=== PATIENT | male | born 1935 | race Caucasian/White ===

== ENCOUNTER 2020-08-03 11:19 | Emergency (ER) | payer BC, MEDICARE ==
[2020-08-03] MEDS ORDERED: Albuterol/Ipratropium 3.0-0.5 MG/3 ML Neb Soln NEB ONE (13:44)
--- NOTE | 2020-08-03 14:38 | EDM.PDOC ---
ED HPI GENERAL MEDICAL PROBLEM - General Chief Complaint: Respiratory Problem Stated Complaint: COVID SYMPTOMS Time Seen by Provider: 08/03/20 13:30 Source of Information: Reports: Patient, Family History Limitations: Reports: No Limitations - History of Present Illness INITIAL COMMENTS - FREE TEXT/NARRATIVE: 84-year-old male has been sick for 2 weeks, was placed on an antibiotic after a phone evaluation 2 weeks ago, did not seem to be improving so another phone call resulted in a Covid test last . Results are not back yet, he is still short of breath just walking across the room so he called the clinic and they told him to come to the emergency room. Onset: Gradual Duration: Week(s): (Symptoms have been ongoing for 3 weeks) Location: Reports: Chest (Some left chest soreness with coughing and breathing intermittent) Associated Symptoms: Reports: Chest Pain, Cough, Fever/Chills, Malaise, Weakness. Denies: Nausea/Vomiting Generalized Pain Score (Numeric/FACES): 5 - Related Data Allergies Allergy/AdvReac Type Severity Reaction Status Date / Time No Known Allergies Allergy Verified 08/03/20 13:19 Home Meds: Home Meds Hydrocodone/Acetaminophen [Hydrocodon-Acetaminoph 7.5-500] 7.5 mg PO Q4HR PRN 07/30/13 [History] Warfarin [Jantoven] 7.5 mg PO DAILY 07/30/13 [History] Clobetasol [Temovate 0.05% Oint] 1 film TOP BID PRN 04/21/15 [History] Tamsulosin HCl [Flomax] 1 cap PO DAILY 04/21/15 [History] Past Medical History Other HEENT History: scleorol buccal in left eye Cardiovascular History: Reports: None, PVD Respiratory History: Reports: PE Other Respiratory History: 2005 Other Genitourinary History: hydrocele Musculoskeletal History: Reports: Arthritis 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, Peripheral Psychiatric History: Reports: None Hematologic History: Reports: None Immunologic History: Reports: None Oncologic (Cancer) History: Reports: None Dermatologic History: Reports: None - Infectious Disease History Infectious Disease History: Reports: Chicken Pox - Past Surgical History GI Surgical History: Reports: Appendectomy, Hernia Repair/Other Social & Family History - Tobacco Use Tobacco Use Status *Q: Never Tobacco User - Recreational Drug Use Recreational Drug Use: No ED ROS GENERAL - Review of Systems Review Of Systems: See Below Constitutional: Reports: Fever, Chills, Malaise, Decreased Appetite HEENT: Denies: Throat Pain Respiratory: Reports: Shortness of Breath, Pleuritic Chest Pain, Cough, Sputum. Denies: Hemoptysis Cardiovascular: Reports: Chest Pain (Left-sided with coughing). Denies: Palpitations GI/Abdominal: Reports: No Symptoms : Reports: No Symptoms Skin: Reports: No Symptoms Neurological: Reports: Dizziness, Weakness. Denies: Headache, Difficulty Walking Psychiatric: Reports: No Symptoms ED EXAM, GENERAL - Physical Exam Exam: See Below Exam Limited By: No Limitations General Appearance: Alert, No Apparent Distress Head: Atraumatic Neck: Supple, Non-Tender Respiratory/Chest: Wheezing (Diffuse expiratory wheezes are heard, underlying good air movement) Cardiovascular: Regular Rate, Rhythm. No: Tachycardia GI/Abdominal: Soft, Non-Tender Extremities: Normal Inspection Neurological: Alert, Oriented, No Motor/Sensory Deficits Psychiatric: Normal Affect, Normal Mood Skin Exam: Warm, Dry Course - Vital Signs Last Recorded V/S: Last Vital Signs Temp 97.5 F 08/03/20 13:15 Pulse 99 08/03/20 14:45 Resp 16 08/03/20 14:45 BP 156/90 H 08/03/20 14:45 Pulse Ox 94 L 08/03/20 14:45 - Orders/Labs/Meds Meds: Medications Discontinued Medications Generic Name Dose Route Start Last Admin Trade Name Freq PRN Reason Stop Dose Admin Albuterol/Ipratropium 3 ml 08/03/20 13:44 08/03/20 14:09 Duoneb 3.0-0.5 Mg/3 Ml NEB 08/03/20 13:45 3 ml ONETIME ONE Administration - Re-Assessments/Exams Free Text/Narrative Re-Assessment/Exam: 08/03/20 14:49 Chest x-ray shows a small infiltrate in the right lower lobe, he is O2 saturations were 96 to 97% and he felt much more comfortable after the DuoNeb. It was a dexamethasone daily for 5 days, Ceftin 500 mg twice daily for 7 days, and given an albuterol inhaler for as needed use with wheezing and cough. His Covid test should be available in the next 24 to 48 hours. If worsening he can return, otherwise take medication as prescribed and increase activity as tolerated. Departure - Departure Time of Disposition: 15:10 Disposition: Home, Self-Care 01 Clinical Impression: Right lower lobe pneumonia Qualifiers: Pneumonia type: due to unspecified organism Qualified Code(s): J18.9 - Pneumonia, unspecified organism Reactive airway disease Qualifiers: Asthma severity: mild Asthma persistence: persistent Asthma complication type: uncomplicated Qualified Code(s): J45.30 - Mild persistent asthma, uncomplicated - Discharge Information Instructions: Community-Acquired Pneumonia, Adult, [id number] Referrals: PCP,None [Primary Care Provider] - Forms: ED Department Discharge Care Plan Goals: Take antibiotic twice daily as prescribed, dexamethasone daily as prescribed, and use inhaler 2 puffs every 3-4 hours if needed for wheezing and shortness of breath. Recheck in 2 to 3 days if not improving satisfactorily or sooner if worsening. Sepsis Event Note (ED) - Evaluation Sepsis Screening Result: No Definite Risk - Focused Exam Vital Signs: Vital Signs Temp Pulse Resp BP Pulse Ox 08/03/20 14:45 99 16 156/90 H 94 L 08/03/20 14:10 99 18 144/82 H 96 08/03/20 13:15 97.5 F 96 20 135/89 95
--- NOTE | 2020-08-03 14:46 | CR ---
CHEST: 2 view CLINICAL HISTORY:Dyspnea COMPARISON:None FINDINGS: Heart size and pulmonary vascularity are normal. There are atherosclerotic changes in the aorta.. There is patchy opacity in the right lower lobe and right middle lobe. There is minimal streaky density at the left lung base. IMPRESSION: Infiltrate at the right lung base is felt to be both in the right middle lobe and lower lobe and is suspect for pneumonia. If clinical symptomatology persists or worsens a repeat exam is recommended.
[2020-08-03 15:06] VITALS: PULSE 99
[2020-08-03 15:08] VITALS: BP 156/90
== END 2020-08-03 15:09 | disposition home or self-care (01) ==
LOC: JP.ED 11:19
DX: J18.9 Pneumonia, unspecified organism (principal); J45.30 Mild persistent asthma, uncomplicated
CPT/HCPCS: 71046; 71046-26; 94640; 99285-25; J7620-GY

== ENCOUNTER 2020-09-01 22:47 | Emergency (ER) | payer MEDICARE ==
[2020-09-01] MEDS ORDERED: Albuterol/Ipratropium 4 GM Inhalation Spray INH STA (23:24)
--- NOTE | 2020-09-01 23:28 | EDM.PDOC ---
ED HPI GENERAL MEDICAL PROBLEM - General Chief Complaint: Respiratory Problem Stated Complaint: BREATHING TROUBLE Time Seen by Provider: 09/01/20 23:19 Source of Information: Reports: Patient, Family, RN Notes Reviewed History Limitations: Reports: No Limitations - History of Present Illness INITIAL COMMENTS - FREE TEXT/NARRATIVE: 84-year-old gentleman presents emergency department a complaint of shortness of breath, he states shortness of breath is developed over the last 3 days but has gotten progressively worse tonight. He recently had COVID-19 he is approximately 1 month out from recovery of that disease also has a history of pulmonary embolism which he is on Coumadin however last week his Coumadin was subtherapeutic. - Related Data Allergies Allergy/AdvReac Type Severity Reaction Status Date / Time No Known Allergies Allergy Verified 09/01/20 23:12 Home Meds: Home Meds Hydrocodone/Acetaminophen [Hydrocodon-Acetaminoph 7.5-500] 7.5 mg PO Q4HR PRN 07/30/13 [History] Warfarin [Jantoven] 5 mg PO DAILY 07/30/13 [History] Clobetasol [Temovate 0.05% Oint] 1 film TOP BID PRN 04/21/15 [History] Tamsulosin HCl [Flomax] 1 cap PO DAILY 04/21/15 [History] Docusate Sodium [Colace] 100 mg PO ASDIRECTED 09/01/20 [History] Multivitamin 1 each PO DAILY 09/01/20 [History] Vitamin E 1,000 unit PO DAILY 09/01/20 [History] Past Medical History Other HEENT History: scleorol buccal in left eye Cardiovascular History: Reports: PVD Respiratory History: Reports: PE Other Respiratory History: 2005 Other Genitourinary History: hydrocele Musculoskeletal History: Reports: Arthritis 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, Peripheral Hematologic History: Reports: None Immunologic History: Reports: None Oncologic (Cancer) History: Reports: None Dermatologic History: Reports: None - Infectious Disease History Infectious Disease History: Reports: Chicken Pox - Past Surgical History GI Surgical History: Reports: Appendectomy, Hernia Repair/Other Social & Family History - Tobacco Use Tobacco Use Status *Q: Never Tobacco User - Caffeine Use Caffeine Use: Reports: Coffee ED ROS GENERAL - Review of Systems Review Of Systems: See Below Constitutional: Reports: No Symptoms HEENT: Reports: No Symptoms Respiratory: Reports: Shortness of Breath, Wheezing Cardiovascular: Reports: Dyspnea on Exertion GI/Abdominal: Reports: No Symptoms : Reports: No Symptoms ED EXAM, GENERAL - Physical Exam Exam: See Below Exam Limited By: No Limitations General Appearance: Alert, WD/WN, No Apparent Distress Respiratory/Chest: No Respiratory Distress, No Accessory Muscle Use, Chest Non- Tender, Wheezing Cardiovascular: Regular Rate, Rhythm, No Murmur GI/Abdominal: Soft, Non-Tender Course - Vital Signs Last Recorded V/S: Last Vital Signs Temp 98.8 F 09/01/20 23:08 Pulse 90 09/02/20 01:23 Resp 24 H 09/02/20 00:11 BP 139/92 H 09/02/20 01:23 Pulse Ox 91 L 09/02/20 01:23 - Orders/Labs/Meds Orders: Active Orders 24 hr Category Date Time Status EKG Documentation Completion [RC] ASDIRECTED Care 09/01/20 23:25 Active Peripheral IV Care [RC] . DIRECTED Care 09/02/20 00:35 Active RT Post Treatment Assessment [RC] Click to Edit Care 09/01/20 23:26 Active Chest 2V [CR] Urgent Exams 09/01/20 23:24 Taken Sodium Chloride 0.9% [Normal Saline] 1,000 ml Med 09/02/20 00:45 Active IV ASDIRECTED Sodium Chloride 0.9% [Saline Flush] Med 09/02/20 00:35 Active 10 ml FLUSH ASDIRECTED PRN Peripheral IV Insertion Adult [OM.PC] Urgent Oth 09/02/20 00:35 Ordered EKG 12 Lead [EK] Urgent Ther 09/01/20 23:24 Ordered Medication Orders Sodium Chloride (Normal Saline) 1,000 mls @ 500 mls/hr IV ASDIRECTED AMANDA Last Admin: 09/02/20 01:21 Dose: 500 mls/hr Documented by: DEEP Sodium Chloride (Saline Flush) 10 ml FLUSH ASDIRECTED PRN PRN Reason: Keep Vein Open Last Admin: 09/02/20 00:48 Dose: 10 ml Documented by: DEEP Labs: Laboratory Tests 09/01/20 09/01/20 09/01/20 Range/Units 23:35 23:35 23:35 WBC 7.7 (4.5-11.0) K/uL RBC 4.97 (4.30-5.90) M/uL Hgb 15.5 H (12.0-15.0) g/dL Hct 47.5 (40.0-54.0) % MCV 96 (80-98) fL MCH 31 (27-31) pg MCHC 33 (32-36) % Plt Count 311 (150-400) K/uL Neut % (Auto) 53 (36-66) % Lymph % (Auto) 28 (24-44) % [place] % (Auto) 11 H (2-6) % Eos % (Auto) 8 H (2-4) % Baso % (Auto) 1 (0-1) % PT 18.7 H (9.5-12.0) sec INR 1.73 H (0.80-1.20) D-Dimer, Quantitative 314.64 (0.0-500.0) ng/mL Sodium (140-148) mmol/L Potassium (3.6-5.2) mmol/L Chloride (100-108) mmol/L Carbon Dioxide (21-32) mmol/L Anion Gap (5.0-14.0) mmol/L BUN (7-18) mg/dL Creatinine (0.8-1.3) mg/dL Est Cr Clr Drug Dosing mL/min Estimated GFR (MDRD) (>60) Glucose (74-106) mg/dL Calcium (8.5-10.1) mg/dL Total Bilirubin (0.2-1.0) mg/dL AST (15-37) U/L ALT (12-78) U/L Alkaline Phosphatase (46-116) U/L Troponin I (0.000-0.056) ng/mL NT-Pro-B Natriuret Pep (5-450) pg/mL Total Protein (6.4-8.2) g/dL Albumin (3.4-5.0) g/dL Globulin (2.3-3.5) g/dL Albumin/Globulin Ratio (1.2-2.2) 09/01/20 09/02/20 Range/Units 23:35 00:36 WBC (4.5-11.0) K/uL RBC (4.30-5.90) M/uL Hgb (12.0-15.0) g/dL Hct (40.0-54.0) % MCV (80-98) fL MCH (27-31) pg MCHC (32-36) % Plt Count (150-400) K/uL Neut % (Auto) (36-66) % Lymph % (Auto) (24-44) % [place] % (Auto) (2-6) % Eos % (Auto) (2-4) % Baso % (Auto) (0-1) % PT (9.5-12.0) sec INR (0.80-1.20) D-Dimer, Quantitative (0.0-500.0) ng/mL Sodium 143 (140-148) mmol/L Potassium 3.9 (3.6-5.2) mmol/L Chloride 106 (100-108) mmol/L Carbon Dioxide 26 (21-32) mmol/L Anion Gap 11.4 (5.0-14.0) mmol/L BUN 14 (7-18) mg/dL Creatinine 1.1 (0.8-1.3) mg/dL Est Cr Clr Drug Dosing 50.88 mL/min Estimated GFR (MDRD) > 60 (>60) Glucose 122 H (74-106) mg/dL Calcium 8.9 (8.5-10.1) mg/dL Total Bilirubin 0.8 (0.2-1.0) mg/dL AST 18 D (15-37) U/L ALT 32 (12-78) U/L Alkaline Phosphatase 84 (46-116) U/L Troponin I < 0.017 (0.000-0.056) ng/mL NT-Pro-B Natriuret Pep 64 (5-450) pg/mL Total Protein 6.5 (6.4-8.2) g/dL Albumin 3.3 L (3.4-5.0) g/dL Globulin 3.2 (2.3-3.5) g/dL Albumin/Globulin Ratio 1.0 L (1.2-2.2) Meds: Medications Generic Name Dose Route Start Last Admin Trade Name Freq PRN Reason Stop Dose Admin Sodium Chloride 1,000 mls @ 500 mls/hr 09/02/20 00:45 09/02/20 01:21 Normal Saline IV 500 mls/hr ASDIRECTED AMANDA Administration Sodium Chloride 10 ml 09/02/20 00:35 09/02/20 00:48 Saline Flush FLUSH 10 ml ASDIRECTED PRN Administration Keep Vein Open Discontinued Medications Generic Name Dose Route Start Last Admin Trade Name Estrellita PRN Reason Stop Dose Admin Albuterol/Ipratropium 1 gm 09/01/20 23:24 09/01/20 23:33 Combivent Respimat INH 09/01/20 23:25 2 puff NOW STA Administration Diphenhydramine HCl 25 mg 09/02/20 00:35 09/02/20 00:44 Benadryl IVPUSH 09/02/20 00:36 25 mg ONETIME ONE Administration Sodium Chloride 100 mls @ 4 mls/sec 09/02/20 00:56 09/02/20 01:04 Normal Saline IV 09/02/20 00:57 4 mls/sec ASDIRECTED STA Administration Iopamidol 100 ml 09/02/20 00:56 09/02/20 01:04 Isovue-370 (76%) IV 09/02/20 00:57 100 ml . DIRECTED STA Administration Ondansetron HCl 4 mg 09/02/20 00:35 09/02/20 00:45 Zofran IVPUSH 09/02/20 00:36 4 mg ONETIME ONE Administration Departure - Departure Time of Disposition: 02:07 Disposition: Home, Self-Care 01 Condition: Fair Clinical Impression: Dyspnea due to COVID-19 - Discharge Information Instructions: Shortness of Breath, Adult, COVID-19 Referrals: Kev Clark, OTHER SPATIAL SCIENTIST [Primary Care Provider] - Forms: ED Department Discharge Additional Instructions: Continue to use your Combivent inhaler you can use 1 puff every 4 hours as needed, please followup with your primary care provider in 5-7 days if not better, please call return to the emergency department with worsening of symptoms. Also on your next follow-up visit with your primary care remember to discuss and bring your information on your thoracic aorta for further image studies and evaluation Sepsis Event Note (ED) - Evaluation Sepsis Screening Result: Possible Sepsis Risk - Focused Exam Vital Signs: Vital Signs Temp Pulse Resp BP Pulse Ox 09/02/20 01:23 90 139/92 H 91 L 09/02/20 00:11 96 24 H 143/88 H 88 L 09/01/20 23:08 98.8 F 106 H 25 H 186/108 H 92 L - My Orders Last 24 Hours: My Active Orders 09/01/20 23:24 Chest 2V [CR] Urgent EKG 12 Lead [EK] Urgent 09/01/20 23:25 EKG Documentation Completion [RC] ASDIRECTED 09/01/20 23:26 RT Post Treatment Assessment [RC] Click to Edit 09/02/20 00:35 Peripheral IV Care [RC] . DIRECTED Sodium Chloride 0.9% [Saline Flush] 10 ml FLUSH ASDIRECTED PRN Peripheral IV Insertion Adult [OM.PC] Urgent 09/02/20 00:45 Sodium Chloride 0.9% [Normal Saline] 1,000 ml IV ASDIRECTED - Assessment/Plan Last 24 Hours: My Active Orders 09/01/20 23:24 Chest 2V [CR] Urgent EKG 12 Lead [EK] Urgent 09/01/20 23:25 EKG Documentation Completion [RC] ASDIRECTED 09/01/20 23:26 RT Post Treatment Assessment [RC] Click to Edit 09/02/20 00:35 Peripheral IV Care [RC] . 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
[2020-09-02] MEDS ORDERED: diphenhydrAMINE 50 MG/ML SDV IVPUSH ONE (00:35)
[2020-09-02] MEDS ORDERED: Sodium Chloride 0.9% 10 ML Syringe FLUSH PRN (00:35)
[2020-09-02] MEDS ORDERED: Ondansetron 4 MG/2 ML SDV IVPUSH ONE (00:35)
[2020-09-02] MEDS ORDERED: Sodium Chloride 0.9% 1,000 ML IV SCH (00:45)
[2020-09-02] MEDS ORDERED: Sodium Chloride 0.9% 100 ML IV STA (00:56)
[2020-09-02] MEDS ORDERED: Iopamidol 755 Mg/ML 100 ML Bottle IV STA (00:56)
[2020-09-02 01:23] VITALS: BP 139/92; PULSE 90
--- NOTE | 2020-09-02 01:45 | CRLCT ---
INDICATION: Shortness of breath post COVID-19 TECHNIQUE: CT chest with i.v. contrast using pulmonary angiographic technique. Coronal and sagittal reformats were obtained. CONTRAST: 100 mL Isovue 370 COMPARISON: None FINDINGS: Cardiovascular: The pulmonary arteries are unremarkable in enhancement with no evidence of acute pulmonary embolism. The heart has an unremarkable appearance and size. 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 Mediastinum: No mass or adenopathy seen. Lung: Patchy ground-glass opacities are present within the right middle lobe and right lower lobe, likely due to COVID-19 infection. Pleura and pericardium: No sign of pleural effusion seen. No significant pericardial effusion is present. Chest wall and axilla: No mass or adenopathy seen. Bone: Unremarkable for age. Upper abdomen: Unremarkable. IMPRESSIONS: 1. No CT evidence of acute pulmonary emboli seen. 2. 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 Dictated by Vladislav Conrad MD @ 09/02/2020 1:43:41 AM Please note that all CT scans at this facility use dose modulation, iterative reconstruction, and/or weight-based dosing when appropriate to reduce radiation dose to as low as reasonably achievable. Dictated by: Vladislav Conrad MD @ 09/02/2020 01:43:43 (Electronically Signed)
--- NOTE | 2020-09-02 09:10 | CR ---
CHEST: 2 view CLINICAL HISTORY:SOB COMPARISON:2 view chest 08/03/2020 FINDINGS: There is some patchy infiltrate in the right lower lobe. This has diminished in density since the prior study. There is also some mild patchy density in the lingula. Heart size and pulmonary vascularity are normal. There are atherosclerotic changes in the aorta.. IMPRESSION: Decrease in density of the right lower lobe infiltrate seen in July Patchy lingular density is suspect for infiltrate in the left lung base
== END 2020-09-02 02:27 | disposition home or self-care (01) ==
LOC: JP.ED 22:47
DX: U07.1 COVID-19 (principal); Z90.49 Acquired absence of other specified parts of digestive tract; Z86.711 Personal history of pulmonary embolism; Z79.01 Long term (current) use of anticoagulants; Z79.899 Other long term (current) drug therapy
CPT/HCPCS: 36415; 71046; 71275; 80053; 83880; 84484; 85025; 85379; 85610; 93005; 93010; 94640; 96374; 96375; 99284; 99285; A9270; J1200; J2405; J7030; Q9967

== ENCOUNTER 2020-09-11 04:27 | Emergency (ER) | payer MEDICARE ==
[2020-09-11] MEDS ORDERED: Albuterol/Ipratropium 3.0-0.5 MG/3 ML Neb Soln NEB ONE (04:56)
--- NOTE | 2020-09-11 05:02 | EDM.PDOC ---
ED HPI GENERAL MEDICAL PROBLEM - General Chief Complaint: Cardiovascular Problem Stated Complaint: [facility] Time Seen by Provider: 09/11/20 04:45 Source of Information: Reports: Patient, EMS, Family, Old Records, RN History Limitations: Reports: No Limitations - History of Present Illness INITIAL COMMENTS - FREE TEXT/NARRATIVE: 84 yo male presents with L lower/lateral chest and upper left lateral abdominal pain. Sx's for a couple days. Seemed worse tonight so he called EMS. Nothing seemed to make his pain better or worse, but on arrival via EMS he his sx's are mostly gone. He took acetaminophen at home without much change. He is here with his via EMS. Saw Kev Clark in the clinic this past Monday and was given a nebulizer with Duoneb meds that he has been using every 4 hrs, last dose tonight at midnight. No follow up appt was scheduled after that. Onset: Gradual Onset Date: 09/09/20 Duration: Day(s):, Improving (was getting worse until he called EMS) Location: Reports: Chest (Left), Abdomen (left) Quality: Reports: Dull Severity: Mild Improves with: Reports: Other (unsure) Worsens with: Reports: Other (unknown) Context: Reports: Other (See HPI) Associated Symptoms: Reports: No Other Symptoms Treatments TRIAGE NURSE: Reports: See EMS Report, Other (see below) (none) - Related Data Allergies Allergy/AdvReac Type Severity Reaction Status Date / Time No Known Allergies Allergy Verified 09/11/20 04:36 Home Meds: Home Meds Hydrocodone/Acetaminophen [Hydrocodon-Acetaminoph 7.5-500] 7.5 mg PO Q4HR PRN 07/30/13 [History] Warfarin [Jantoven] 5 mg PO DAILY 07/30/13 [History] Clobetasol [Temovate 0.05% Oint] 1 film TOP BID PRN 04/21/15 [History] Tamsulosin HCl [Flomax] 1 cap PO DAILY 04/21/15 [History] Docusate Sodium [Colace] 100 mg PO ASDIRECTED 09/01/20 [History] Multivitamin 1 each PO DAILY 09/01/20 [History] Vitamin E 1,000 unit PO DAILY 09/01/20 [History] Past Medical History Other HEENT History: scleorol buccal in left eye Cardiovascular History: Reports: PVD Respiratory History: Reports: PE Other Respiratory History: 2006 Other Genitourinary History: hydrocele Musculoskeletal History: Reports: Arthritis 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, Peripheral Psychiatric History: Reports: None Hematologic History: Reports: None Immunologic History: Reports: None Oncologic (Cancer) History: Reports: None Dermatologic History: Reports: None - Infectious Disease History Infectious Disease History: Reports: Chicken Pox, Novel Coronavirus - Past Surgical History GI Surgical History: Reports: Appendectomy, Hernia Repair/Other Social & Family History - Tobacco Use Tobacco Use Status *Q: Never Tobacco User - Caffeine Use Caffeine Use: Reports: Coffee - Recreational Drug Use Recreational Drug Use: No ED ROS GENERAL - Review of Systems Review Of Systems: See Below Constitutional: Reports: No Symptoms HEENT: Reports: No Symptoms Respiratory: Reports: Shortness of Breath, Wheezing Cardiovascular: Reports: Chest Pain (L lateral/lower chest) GI/Abdominal: Reports: Abdominal Pain (L lateral/upper ) : Reports: No Symptoms Musculoskeletal: Reports: No Symptoms Skin: Reports: No Symptoms ED EXAM, GENERAL - Physical Exam Exam: See Below Exam Limited By: No Limitations General Appearance: Alert, WD/WN, No Apparent Distress Eye Exam: Bilateral Eye: Normal Inspection Ears: Normal External Exam, Normal Canal, Hearing Grossly Normal Ear Exam: Bilateral Ear: Auricle Normal, Canal Normal Nose: Normal Inspection, No Blood Throat/Mouth: Normal Inspection, Normal Lips, Normal Oropharynx, Normal Voice, No Airway Compromise Head: Atraumatic, Normocephalic Neck: Normal Inspection Respiratory/Chest: No Respiratory Distress, No Accessory Muscle Use, Chest Non- Tender, Wheezing Cardiovascular: Regular Rate, Rhythm, No Edema GI/Abdominal: Normal Bowel Sounds, Soft, Non-Tender, No Distention Back Exam: Normal Inspection Extremities: Normal Inspection, Normal Range of Motion, Non-Tender, No Pedal Edema Neurological: Alert, Oriented, CN II-XII Intact, Normal Cognition, No Motor/Sensory Deficits Psychiatric: Normal Affect, Normal Mood Skin Exam: Warm, Dry, Intact, Normal Color, No Rash Course - Vital Signs Last Recorded V/S: Last Vital Signs Temp Pulse 100 09/11/20 05:33 Resp 19 09/11/20 05:33 BP 152/86 H 09/11/20 05:33 Pulse Ox 91 L 09/11/20 05:33 - Orders/Labs/Meds Orders: Active Orders 24 hr Category Date Time Status RT Aerosol Therapy [RC] ASDIRECTED Care 09/11/20 04:56 Active Labs: Laboratory Tests 09/11/20 09/11/20 Range/Units 05:03 05:03 PT 24.8 H (9.5-12.0) sec INR 2.31 H (0.80-1.20) Troponin I < 0.017 (0.000-0.056) ng/mL Meds: Medications Discontinued Medications Generic Name Dose Route Start Last Admin Trade Name Estrellita PRN Reason Stop Dose Admin Albuterol/Ipratropium 3 ml 09/11/20 04:56 09/11/20 05:01 Duoneb 3.0-0.5 Mg/3 Ml NEB 09/11/20 04:57 3 ml ONETIME ONE Administration Prednisone 30 mg 09/11/20 05:05 09/11/20 05:09 Prednisone PO 09/11/20 05:06 30 mg ONETIME ONE Administration Departure - Departure Time of Disposition: 06:00 Disposition: Home, Self-Care 01 Condition: Fair Clinical Impression: Bronchospasm, Resolved abdominal pain Instructions: Bronchospasm, Adult, [id number] Referrals: Kev Clark CUE WORKER [Primary Care Provider] - Forms: ED Department Discharge Additional Instructions: Take prednisone with meals as directed. Continue your other medications as before. Recheck with your provider in the clinic next Monday, call for an appt. Use acetaminophen 1000 mg every 6 hrs as needed for pain relief. Sepsis Event Note (ED) - Evaluation Sepsis Screening Result: No Definite Risk - Focused Exam Vital Signs: Vital Signs Pulse Resp BP Pulse Ox 09/11/20 05:33 100 19 152/86 H 91 L 09/11/20 05:12 98 09/11/20 04:33 99 18 149/96 H 92 L - My Orders Last 24 Hours: My Active Orders 09/11/20 04:56 RT Aerosol Therapy [RC] ASDIRECTED - Assessment/Plan Last 24 Hours: My Active Orders 09/11/20 04:56 RT Aerosol Therapy [RC] ASDIRECTED
[2020-09-11] MEDS ORDERED: predniSONE 10 MG Tab PO ONE (05:05)
[2020-09-11 05:34] VITALS: BP 152/86; PULSE 100
== END 2020-09-11 05:58 | disposition home or self-care (01) ==
LOC: JP.ED 04:27
DX: J98.01 Acute bronchospasm (principal); G62.9 Polyneuropathy, unspecified; Z79.01 Long term (current) use of anticoagulants; Z79.899 Other long term (current) drug therapy; Z86.711 Personal history of pulmonary embolism
CPT/HCPCS: 36415; 84484; 85610; 94640; 99285; J7512; J7620-GY

== ENCOUNTER 2020-09-12 09:55 | Emergency (ER) | payer MEDICARE ==
[2020-09-12] MEDS ORDERED: Albuterol/Ipratropium 3.0-0.5 MG/3 ML Neb Soln NEB ONE (10:49)
--- NOTE | 2020-09-12 10:53 | EDM.PDOC ---
ED HPI GENERAL MEDICAL PROBLEM - General Chief Complaint: Respiratory Problem Stated Complaint: SOB Time Seen by Provider: 09/12/20 10:37 Source of Information: Reports: Patient, Family, Old Records, RN Notes Reviewed History Limitations: Reports: No Limitations - History of Present Illness INITIAL COMMENTS - FREE TEXT/NARRATIVE: 84-year-old gentleman presents emergency department a complaint of shortness of breath, wheezing diagnosed with Covid 19 on July 30 he has had follow-up in the clinic and has been in the emergency department two times since then same complaint of shortness of breath, underwent CT scan angio 10 days ago which was negative for any pulmonary embolism. He has been using albuterol and ipratropium where he gets some relief for shortness of breath was started on steroids yesterday at his ER visit. He has not had any fevers no nausea vomiting no chest pain no GI symptomatologies he does produce sputum and has a significant cough. History of pulmonary embolism and is anticoagulated with Coumadin - Related Data Allergies Allergy/AdvReac Type Severity Reaction Status Date / Time No Known Allergies Allergy Verified 09/12/20 10:04 Home Meds: Home Meds Hydrocodone/Acetaminophen [Hydrocodon-Acetaminoph 7.5-500] 7.5 mg PO Q4HR PRN 07/30/13 [History] Warfarin [Jantoven] 5 mg PO DAILY 07/30/13 [History] Clobetasol [Temovate 0.05% Oint] 1 film TOP BID PRN 04/21/15 [History] Tamsulosin HCl [Flomax] 1 cap PO DAILY 04/21/15 [History] Docusate Sodium [Colace] 100 mg PO ASDIRECTED 09/01/20 [History] Multivitamin 1 each PO DAILY 09/01/20 [History] Vitamin E 1,000 unit PO DAILY 09/01/20 [History] predniSONE [Prednisone] 10 mg PO TID 09/12/20 [History] Past Medical History HEENT History: Reports: Other (See Below) Other HEENT History: scleorol buccal in left eye Cardiovascular History: Reports: PVD Respiratory History: Reports: PE Other Respiratory History: 2005 Genitourinary History: Reports: Other (See Below) Other Genitourinary History: hydrocele Musculoskeletal History: Reports: Arthritis 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, Peripheral Psychiatric History: Reports: None Hematologic History: Reports: None Immunologic History: Reports: None Oncologic (Cancer) History: Reports: None Dermatologic History: Reports: None - Infectious Disease History Infectious Disease History: Reports: Chicken Pox, Novel Coronavirus - Past Surgical History Cardiovascular Surgical History: Reports: None GI Surgical History: Reports: Appendectomy, Hernia Repair/Other Social & Family History - Tobacco Use Tobacco Use Status *Q: Never Tobacco User - Caffeine Use Caffeine Use: Reports: Coffee - Recreational Drug Use Recreational Drug Use: No ED ROS GENERAL - Review of Systems Review Of Systems: See Below Constitutional: Denies: Fever, Chills HEENT: Reports: No Symptoms Respiratory: Reports: Shortness of Breath, Wheezing, Cough, Sputum Cardiovascular: Reports: Dyspnea on Exertion GI/Abdominal: Reports: No Symptoms : Reports: No Symptoms ED EXAM, GENERAL - Physical Exam Exam: See Below Exam Limited By: No Limitations General Appearance: Alert, WD/WN, No Apparent Distress Respiratory/Chest: No Respiratory Distress, Chest Non-Tender, Decreased Breath Sounds, Wheezing Cardiovascular: No Murmur, Tachycardia GI/Abdominal: Soft, Non-Tender Extremities: No Pedal Edema Course - Vital Signs Last Recorded V/S: Last Vital Signs Temp 97 F 09/12/20 10:11 Pulse 105 H 09/12/20 13:10 Resp 12 09/12/20 11:06 BP 130/92 H 09/12/20 13:10 Pulse Ox 89 L 09/12/20 13:10 - Orders/Labs/Meds Orders: Active Orders 24 hr Category Date Time Status Cardiac Monitoring [RC] .As Directed Care 09/12/20 10:49 Active EKG Documentation Completion [RC] ASDIRECTED Care 09/12/20 10:50 Active RT Aerosol Therapy [RC] ASDIRECTED Care 09/12/20 10:49 Active EKG 12 Lead [EK] Stat Ther 09/12/20 10:50 Ordered Labs: Laboratory Tests 09/12/20 09/12/20 09/12/20 Range/Units 11:03 11:03 11:03 WBC 8.4 (4.5-11.0) K/uL RBC 5.25 (4.30-5.90) M/uL Hgb 16.5 H (12.0-15.0) g/dL Hct 49.6 (40.0-54.0) % MCV 95 (80-98) fL MCH 31 (27-31) pg MCHC 33 (32-36) % Plt Count 358 (150-400) K/uL Neut % (Auto) 86 H (36-66) % Lymph % (Auto) 10 L (24-44) % Cloud % (Auto) 4 (2-6) % Eos % (Auto) 0 L (2-4) % Baso % (Auto) 1 (0-1) % PT (9.5-12.0) sec INR (0.80-1.20) D-Dimer, Quantitative 225.28 (0.0-500.0) ng/mL Sodium 140 (140-148) mmol/L Potassium 4.5 (3.6-5.2) mmol/L Chloride 105 (100-108) mmol/L Carbon Dioxide 22 (21-32) mmol/L Anion Gap 13.2 (5.0-14.0) mmol/L BUN 10 (7-18) mg/dL Creatinine 1.1 (0.8-1.3) mg/dL Est Cr Clr Drug Dosing 50.88 mL/min Estimated GFR (MDRD) > 60 (>60) Glucose 145 H (74-106) mg/dL Lactic Acid (0.4-2.0) mmol/L Calcium 8.8 (8.5-10.1) mg/dL Total Bilirubin 0.8 (0.2-1.0) mg/dL AST 20 (15-37) U/L ALT 36 (12-78) U/L Alkaline Phosphatase 84 (46-116) U/L Troponin I < 0.017 (0.000-0.056) ng/mL NT-Pro-B Natriuret Pep 195 (5-450) pg/mL Total Protein 6.9 (6.4-8.2) g/dL Albumin 3.6 (3.4-5.0) g/dL Globulin 3.3 (2.3-3.5) g/dL Albumin/Globulin Ratio 1.1 L (1.2-2.2) 09/12/20 09/12/20 Range/Units 11:03 11:03 WBC (4.5-11.0) K/uL RBC (4.30-5.90) M/uL Hgb (12.0-15.0) g/dL Hct (40.0-54.0) % MCV (80-98) fL MCH (27-31) pg MCHC (32-36) % Plt Count (150-400) K/uL Neut % (Auto) (36-66) % Lymph % (Auto) (24-44) % Cloud % (Auto) (2-6) % Eos % (Auto) (2-4) % Baso % (Auto) (0-1) % PT 25.5 H (9.5-12.0) sec INR 2.38 H (0.80-1.20) D-Dimer, Quantitative (0.0-500.0) ng/mL Sodium (140-148) mmol/L Potassium (3.6-5.2) mmol/L Chloride (100-108) mmol/L Carbon Dioxide (21-32) mmol/L Anion Gap (5.0-14.0) mmol/L BUN (7-18) mg/dL Creatinine (0.8-1.3) mg/dL Est Cr Clr Drug Dosing mL/min Estimated GFR (MDRD) (>60) Glucose (74-106) mg/dL Lactic Acid 2.7 H (0.4-2.0) mmol/L Calcium (8.5-10.1) mg/dL Total Bilirubin (0.2-1.0) mg/dL AST (15-37) U/L ALT (12-78) U/L Alkaline Phosphatase (46-116) U/L Troponin I (0.000-0.056) ng/mL NT-Pro-B Natriuret Pep (5-450) pg/mL Total Protein (6.4-8.2) g/dL Albumin (3.4-5.0) g/dL Globulin (2.3-3.5) g/dL Albumin/Globulin Ratio (1.2-2.2) Meds: Medications Discontinued Medications Generic Name Dose Route Start Last Admin Trade Name Freq PRN Reason Stop Dose Admin Albuterol/Ipratropium 3 ml 09/12/20 10:49 09/12/20 10:55 Duoneb 3.0-0.5 Mg/3 Ml NEB 09/12/20 10:50 3 ml ONETIME ONE Administration Departure - Departure Time of Disposition: 13:22 Disposition: Home, Self-Care 01 Condition: Fair Clinical Impression: Acute bronchiolitis Qualifiers: Bronchiolitis organism: other organism Qualified Code(s): J21.8 - Acute bronchiolitis due to other specified organisms - Discharge Information Instructions: Acute Bronchitis, Adult, [id number] Referrals: Kev Clark [employer] [Primary Care Provider] - Forms: ED Department Discharge Additional Instructions: Take full course of antibiotics, complete full course of prednisone, use Robitussin-AC for cough suppression, please followup with your primary care provider in 3-5 days if not better, please call return to the emergency department with worsening of symptoms. Sepsis Event Note (ED) - Evaluation Sepsis Screening Result: No Definite Risk - Focused Exam Vital Signs: Vital Signs Temp Pulse Resp BP Pulse Ox 09/12/20 13:10 105 H 130/92 H 89 L 09/12/20 12:17 107 H 132/92 H 89 L 09/12/20 11:48 109 H 131/87 89 L 09/12/20 11:06 12 137/78 90 L 09/12/20 10:11 97 F 109 H 12 142/87 H 91 L - My Orders Last 24 Hours: My Active Orders 09/12/20 10:49 Cardiac Monitoring [RC] .As Directed RT Aerosol Therapy [RC] ASDIRECTED 09/12/20 10:50 EKG Documentation Completion [RC] ASDIRECTED EKG 12 Lead [EK] Stat - Assessment/Plan Last 24 Hours: My Active Orders 09/12/20 10:49 Cardiac Monitoring [RC] .As Directed RT Aerosol Therapy [RC] ASDIRECTED 09/12/20 10:50 EKG Documentation Completion [RC] ASDIRECTED EKG 12 Lead [EK] Stat Plan: Assessment Acuity = acute Site and laterality = bronchitis complicating the patient history of COVID-19 now 1 month out Etiology = probable post viral Manifestations = wheezing Location of injury = Home Lab values = CBC unremarkable, INR therapeutic 2.38 lactic acid elevated 2.7 consistent with lactic acidosis, remainder of CMP unremarkable chest x-ray stable no acute process Plan He is currently on prednisone 30 mg once a day he will continue with that will add azithromycin per package directions as well as Robitussin-AC 10 mL every 6 hours as needed 120 mL bottle follow-up primary care 3 to 5 days for further evaluation if not better This note was dictated using dragon voice recognition software please call with any questions on syntax or grammar.
--- NOTE | 2020-09-12 12:49 | CRLCR ---
Indication: Chest pain. Technique: PA and lateral views of the chest. Comparison: September 01, 2020. Findings: Increased opacities are identified in both lung bases, stable. No pleural effusion or pneumothorax is identified. The heart is normal in size. The aorta is tortuous. Impression: Stable chest x-ray Dictated by Jody Brownlee MD @ Sep 12 2020 12:46PM Signed by Dr. Jody Brownlee @ Sep 12 2020 12:46PM
[2020-09-12 13:11] VITALS: BP 130/92; PULSE 105
== END 2020-09-12 13:57 | disposition home or self-care (01) ==
LOC: JP.ED 09:55
DX: J21.8 Acute bronchiolitis due to other specified organisms (principal); G62.9 Polyneuropathy, unspecified; Z86.711 Personal history of pulmonary embolism; Z79.01 Long term (current) use of anticoagulants; Z79.899 Other long term (current) drug therapy
CPT/HCPCS: 36415; 71046; 80053; 83605; 83880; 84484; 85025; 85379; 85610; 93005; 93010; 94640; 99285-25; J7620-GY

== ENCOUNTER 2022-12-23 10:46 | Emergency (ER) | payer MEDICARE ==
[2022-12-23] MEDS ORDERED: HYDROmorphone 1 MG/ML Syringe IM ONE (11:31)
[2022-12-23 12:31] VITALS: BP 110/65; PULSE 101
== END 2022-12-23 12:32 | disposition home or self-care (01) ==
LOC: JP.ED 10:46
DX: S76.312A Strain of muscle, fascia and tendon of the posterior muscle group at thigh level, left thigh, initial encounter (principal); S80.02XA Contusion of left knee, initial encounter; Z79.01 Long term (current) use of anticoagulants; Z86.16 Personal history of COVID-19; W00.0XXA Fall on same level due to ice and snow, initial encounter; X50.1XXA Overexertion from prolonged static or awkward postures, initial encounter
CPT/HCPCS: 73562; 96372; 99283; J1170